=== PATIENT | female | born 1975 | race Caucasian/White ===

== ENCOUNTER 2018-06-23 11:06 | Outpatient (CLI) | payer BC ==
--- NOTE | 2018-06-23 12:07 | RAD ---
CHEST PA AND LATERAL: History: 43-year-old female with history of pneumonia and decreased lung sounds, cough for one week. Left uppe r back and chest pain. FINDINGS: Heart size is within normal limits. The lungs are clear. No pneumonia, edema, or pleural effusion, or other acute process. IMPRESSION: No acute intrathoracic disease. POS: [facility]
== END 2018-06-23 11:07 | disposition home or self-care (01) ==
LOC: BURRAD 11:06
PROVIDERS: ATTEND Nurse Practitioner Family
DX: R06.89 Other abnormalities of breathing (principal); Z87.01 Personal history of pneumonia (recurrent)
CPT/HCPCS: 71046